=== PATIENT | female | born 1965 | race Two or more races ===

== ENCOUNTER 2018-02-24 22:43 | Emergency (ER) | payer OTHER ==
[~2018-02-24] VITALS: Ht 154.9 cm; Wt 61.2 kg
[~2018-02-24 22:43] MED LIST: AZITHROMYCIN250 MG ORAL; CYCLOBENZAPRINE10 MG ORAL; IBUPROFEN600 MG ORAL; NKM; PROMETHAZINE-C118 M1 ORAL; TAMIFLU75 MG ORAL
[2018-02-24 22:57] VITALS: BP 118/87
[2018-02-24] MEDS ORDERED: IBUPROFEN600 MG ORAL (23:09)
[2018-02-24] MEDS ORDERED: PSEUDOEPHEDRINE60 MG PO (23:09)
--- NOTE | 2018-02-24 23:09 | Emergency Room Report ---
History of Present Illness General Chief Complaint: Sore Throat Source: Patient Present Illness [facility] This is a 52-year-old female with no past medical history. She presents with chief complaint of sore throat, chills, body pain. Onset yesterday. No nausea no vomiting. Pain is achy nature. Coughing is nonproductive in nature. Throat is sore with coughing. Worse with swallowing. Better with rest. Has not take any medication for this. Her niece is here with similar symptoms. Allergies: Coded Allergies: PENICILLINS (Verified Allergy, Unknown, 02/24/18) Patient History Past Medical History: none, see triage record, old chart reviewed Past Surgical History: other Pertinent Family History: none Social History: Denies: smoking Last Menstrual Period: 2013 Now: No Immunizations: other Reviewed Nursing Documentation: PMH: Agreed; PSxH: Agreed Nursing Documentation-PMH Past Medical History: No Stated History Review of Systems Eye: Denies: eye pain, blurred vision ENT: Reports: nose congestion, throat pain; Denies: ear pain, throat swelling Respiratory: Reports: cough; Denies: shortness of breath Cardiovascular: Denies: chest pain, palpitations Gastrointestinal: Denies: abdominal pain, diarrhea, nausea, vomiting Musculoskeletal: Denies: back pain, joint pain Skin: Denies: rash Neurological: Denies: headache, numbness Endocrine: Denies: increased thirst, increased urine Hematologic/Lymphatic: Denies: easy bruising All Other Systems: negative except mentioned in HPI Physical Exam Vital Signs Date Time Temp Pulse Resp B/P (MAP) Pulse Ox O2 Delivery O2 Flow Rate FiO2 02/24/18 22:51 97.7 63 16 118/87 97 Room Air vitals normal Sp02 EP Interpretation: reviewed, normal General Appearance: well appearing, no apparent distress, alert Head: normocephalic, atraumatic Eyes: bilateral eye PERRL, bilateral eye EOMI ENT: hearing grossly normal, normal pharynx, other - Bilateral TM with fluid Neck: full range of motion, supple, no meningismus Respiratory: chest non-tender, lungs clear, normal breath sounds Cardiovascular #1: regular rate, rhythm, no murmur Gastrointestinal: normal bowel sounds, non tender, no mass, no organomegaly, no bruit, non-distended Musculoskeletal: back normal, gait/station normal, normal range of motion Psychiatric: mood/affect normal Skin: warm/dry Medical Decision Making Diagnostic Impression: Primary Impression: Upper respiratory infection Qualified Codes: J06.9 - Acute upper respiratory infection, unspecified ER Course Patient with a viral infection. No evidence of meningitis, strep throat, pneumonia or other serious serious infection. We'll treat symptomatically. Last Vital Signs Date Time Temp Pulse Resp B/P (MAP) Pulse Ox O2 Delivery O2 Flow Rate FiO2 02/24/18 22:57 97.7 61 16 118/87 97 Room Air Status: improved Disposition: HOME, SELF-CARE Condition: Stable Scripts Pseudoephedrine Hcl* (SUDAFED*) 60 Mg Tablet 60 MG PO Q6H, #20 TAB Prov: Mando Ramon MD 02/24/18 Ibuprofen* (MOTRIN*) 600 Mg Tablet 600 MG ORAL THREE TIMES A DAY, #30 TAB 0 Refills Prov: Mando Ramon MD 02/24/18 Additional Instructions: Increase fluids. Salt water gargle. Follow-up with your doctor in 7 days. Return if worse. Mando Ramon MD Feb 24, 2018 23:09
[2018-02-24 23:18] VITALS: BP 116/81
[2018-02-24 23:19] VITALS: BP 116/81
== END 2018-02-24 23:19 | disposition home or self-care (01) ==
LOC: EMR 23:15
DX: J06.9 Acute upper respiratory infection, unspecified (principal); B34.9 Viral infection, unspecified; Z88.0 Allergy status to penicillin
CPT/HCPCS: 99283

== ENCOUNTER 2018-03-11 08:30 | Emergency (ER) | payer OTHER ==
[~2018-03-11] VITALS: Ht 154.9 cm; Wt 63.5 kg
[~2018-03-11 08:30] MED LIST changes: +PSEUDOEPHEDRINE60 MG PO
[2018-03-11] MEDS ORDERED: NKM (08:37)
--- NOTE | 2018-03-11 08:40 | NUR ---
ED Nurse Note: PT WALKED IN TO ER TODAY FROM HOME. AOX4. PT C/O PRODUCTIVE, PAINFUL COUGH X 2 DAYS. PT ALSO C/O BODY ACHE X 2 DAYS. LUNG SOUNDS CLEAR IN ALL LOBES. NO SIGNS OF RESPIRATORY. RR16 WITH O2SAT @ 99%. PT DENIES FEVER, NAUSEA, VOMITING, OR DIARRHEA.
[2018-03-11 08:42] VITALS: BP 112/74
[2018-03-11] MEDS ORDERED: TAMIFLU75 MG ORAL (10:32)
[2018-03-11 10:59] VITALS: BP 116/76
--- NOTE | 2018-03-11 11:00 | NUR ---
ED Nurse Note: PT LAYING PEACEFULLY IN BED IN NAD. AOX4. PRESCRIPTION AND DISCHARGE PAPERWORK EXPLAINED TO PT. PT VERBALIZES UNDERSTANDING AND DENIES ANY QUESTIONS AT THIS TIME. PRESCRIPTION AND DISCHARGE PAPERWORK GIVEN TO PT AND ID WRISTBAND REMOVED. PT WALKED OUT OF ER WITH STEADY GAIT AND ALL BELONGINGS.
--- NOTE | 2018-03-11 15:25 | Diagnostic Imaging Report ---
Indication: Chest pain Technique: One view of the chest Comparison: none Findings: Lungs and pleural spaces are clear. Heart size is normal Impression: No acute process
--- NOTE | 2018-03-11 16:11 | Emergency Room Report ---
History of Present Illness General Chief Complaint: Upper Respiratory Illness Source: Patient Present Illness HPI Patient presents with complaints of cough and chest discomfort Patient reports over the past several days she has had increased cough Patient was here recently with similar URI symptoms Denies any pleurisy denies any recent travel denies any fevers Denies any vomiting or diarrhea she does have increased phlegm production however Allergies: Coded Allergies: PENICILLINS (Verified Allergy, Unknown, 03/11/18) Patient History Past Medical History: see triage record Pertinent Family History: none Last Menstrual Period: 2012 Reviewed Nursing Documentation: PMH: Agreed; PSxH: Agreed Nursing Documentation-PMH Past Medical History: No Stated History Review of Systems All Other Systems: negative except mentioned in HPI Physical Exam Vital Signs Date Time Temp Pulse Resp B/P (MAP) Pulse Ox O2 Delivery O2 Flow Rate FiO2 03/11/18 08:33 98.1 68 16 113/77 97 Room Air Sp02 EP Interpretation: reviewed, normal General Appearance: well appearing, no apparent distress Head: normocephalic, atraumatic Eyes: bilateral eye PERRL, bilateral eye EOMI ENT: hearing grossly normal, normal pharynx, TMs + canals normal, uvula midline , other - Nasal congestion with clear Rhinorrhea Neck: full range of motion, supple, no meningismus, no bony tend Respiratory: normal breath sounds, no rhonchi, no respiratory distress, no retraction, no accessory muscle use, crackles - Bilaterally Cardiovascular #1: normal peripheral pulses, regular rate, rhythm, no edema, no gallop, no JVD, no murmur Gastrointestinal: normal bowel sounds, non tender, soft, no mass, no organomegaly, non-distended, no guarding, no hernia, no pulsatile mass, no rebound Genitourinary: no CVA tenderness Musculoskeletal: normal inspection Neurologic: oriented x3, responsive, commodities broker III-XII nml as tested, motor strength/ tone normal, sensory intact Psychiatric: mood/affect normal Skin: normal color, no rash, warm/dry, palpation normal Lymphatic: normal inspection, no adenopathy Medical Decision Making Diagnostic Impression: Primary Impression: Upper respiratory infection Additional Impression: Influenza ER Course Multiple differentials considered Including but not limited to cardiac, cardiopulmonary, vascular pathology Given the patient's repeat presentation x-ray imaging was obtained which was negative Findings remain consistent with flulike symptoms given the duration of 2 days patient is placed on Tamiflu and requires close follow-up Chest X-Ray Diagnostic Results Chest X-Ray Diagnostic Results : Chest X-Ray Ordered: Yes # of Views/Limited/Complete: 1 View Indication: Chest Pain EP Interpretation: Yes Interpretation: no consolidation, no effusion, no pneumothorax Impression: No acute disease Electronically Signed by: Sterling Aggarwal DO Last Vital Signs Date Time Temp Pulse Resp B/P (MAP) Pulse Ox O2 Delivery O2 Flow Rate FiO2 03/11/18 10:59 98.5 64 17 116/76 97 Room Air Status: improved Disposition: HOME, SELF-CARE Condition: Stable Scripts Oseltamivir Phosphate (Tamiflu) 75 Mg Capsule 75 MG ORAL TWICE A DAY for 5 Days, CAP Prov: Sterling Aggarwal DO 03/11/18 Referrals: NON PHYSICIAN (PCP) Patient Instructions: Upper Respiratory Infection, Adult Additional Instructions: Patient is provided with the discharge instructions notified to follow up with primary doctor in the next 2-3 days otherwise return to the er with any worsening symptoms. Please note that this report is being documented using [employer] technology. This can lead to erroneous entry secondary to incorrect interpretation by the dictating instrument. Sterling Aggarwal DO Mar 11, 2018 16:11
== END 2018-03-11 11:00 | disposition home or self-care (01) ==
LOC: EMR 08:45
DX: J06.9 Acute upper respiratory infection, unspecified (principal); J11.1 Influenza due to unidentified influenza virus with other respiratory manifestations; Z88.0 Allergy status to penicillin
CPT/HCPCS: 71045; 93005; 99283

== ENCOUNTER 2019-01-16 13:36 | Emergency (ER) | payer OTHER ==
[~2019-01-16] VITALS: Ht 154.9 cm; Wt 59.0 kg
[2019-01-16] MEDS ORDERED: PATADAY2.5 ML OP (13:49)
[2019-01-16] MEDS ORDERED: Fluorescein Strips LEFT EYE ONE (15:00)
[2019-01-16] MEDS ORDERED: Tetracaine 0.5% Opth 4ml Soln LEFT EYE ONE (15:00)
[2019-01-16 15:33] VITALS: BP 110/65
--- NOTE | 2019-01-16 15:42 | Emergency Room Report ---
History of Present Illness General Chief Complaint: Eye Problems Source: Patient Present Illness HPI 33-year-old female presents to the emergency department complaining of 2 complaints first complaint being erythema in the left eye x4 hours. Pt. Patient states she looked in the mirror randomly earlier and noticed the discoloration. Patient denies trauma she denies sneezing, coughing, history of high blood pressure or constipation. She denies eye pain, discharge, visual changes or loss of vision. Patient denies increase in lacrimation. Patient denies photophobia. Patient does report she also has an 8 out of 10 severity pain to the left ankle times almost 2 weeks. Patient reports that she fell and twisted her ankle and her symptoms have not improved. Patient reports her pain is exacerbated upon walking she states she is able to weight-bear. Patient denies previous injury to the extremity. Patient states that she has not taken any medications for any of her symptoms. Denies numbness tingling or loss of sensation or gross motor movements of the extremities, incontinence of bowel or bladder. Denies CP, Palpitations, LOC, AMS, dizziness, Changes in Vision, weakness or a sudden severe headache. Allergies: Coded Allergies: PENICILLINS (Verified Allergy, Unknown, 03/11/18) Patient History Past Medical History: see triage record Past Surgical History: none Pertinent Family History: none Last Menstrual Period: menopause Now: No Reviewed Nursing Documentation: PMH: Agreed; PSxH: Agreed Nursing Documentation-PMH Past Medical History: No Stated History Review of Systems All Other Systems: negative except mentioned in HPI Physical Exam Vital Signs Date Time Temp Pulse Resp B/P (MAP) Pulse Ox O2 Delivery O2 Flow Rate FiO2 01/16/19 13:46 97.9 82 18 107/67 (80) 94 Room Air Sp02 EP Interpretation: reviewed, normal General Appearance: no apparent distress, alert, GCS 15, non-toxic Head: normocephalic, atraumatic Eyes: left eye visual acuity - 20/30; bilateral eye normal inspection, bilateral eye PERRL, bilateral eye EOMI, bilateral eye other - Visible subconjunctival full hemorrhage to the medial aspect of the left eye, no increased fluorescein uptake, normal Eder-Pen pressures of 13, 17 and 16. No evidence of foreign body on lid flip examination, normal visual acuity, negative Jayde sign ENT: hearing grossly normal, normal voice Neck: full range of motion Respiratory: lungs clear, normal breath sounds, speaking full sentences Cardiovascular #1: regular rate, rhythm, normal capillary refill Cardiovascular #2: 2+ dorsalis pedis (L) Musculoskeletal: back normal, gait/station normal, normal range of motion, swelling - Lateral left ankle, tender - Lateral left ankle Neurologic: alert, oriented x3, responsive, motor strength/tone normal, sensory intact, speech normal, grossly normal Psychiatric: judgement/insight normal Skin: no rash, normal color Medical Decision Making PA Attestation Dr. Higginbotham is my supervising Physician whom patient management has been discussed with. Diagnostic Impression: Primary Impression: Subconjunctival hemorrhage of left eye Additional Impression: Left ankle sprain Qualified Codes: S93.402A - Sprain of unspecified ligament of left ankle, initial encounter ER Course 33-year-old female presents to the emergency department complaining of 2 complaints first complaint being erythema in the left eye x4 hours. Pt. Patient states she looked in the mirror randomly earlier and noticed the discoloration. Patient denies trauma she denies sneezing, coughing, history of high blood pressure or constipation. She denies eye pain, discharge, visual changes or loss of vision. Patient denies increase in lacrimation. Patient denies photophobia. Patient does report she also has an 8 out of 10 severity pain to the left ankle times almost 2 weeks. Patient reports that she fell and twisted her ankle and her symptoms have not improved. Patient reports her pain is exacerbated upon walking she states she is able to weight-bear. Patient denies previous injury to the extremity. Patient states that she has not taken any medications for any of her symptoms. Denies numbness tingling or loss of sensation or gross motor movements of the extremities, incontinence of bowel or bladder. Denies CP, Palpitations, LOC, AMS, dizziness, Changes in Vision, weakness or a sudden severe headache. Ddx considered but are not limited to Fracture, dislocation, contusion, Sprain/ Strain/Spasm, sub-conjunctival hemorrhage, acute angle-glaucoma, corneal abrasion, iritis just to name a few. Vital signs: are WNL, pt. is afebrile H&PE are most consistent with subconjunctival hemorrhage with a normal eye exam no increased floor seen uptake and normal Eder-Pen pressures of 13, 17 and 16. Musculoskeletal injury will perform imaging to r/o fractures/dislocations. ORDERS: - X-ray left Ankle 3 views - negative for fx, Dislocation, or significant soft tissue injury, per preliminary read in ED, and signed by CHOLO Young , my supervising physician has reviewed, and agrees with my interpretation. ED INTERVENTIONS: -Tylenol p.o. -Luis wrap applied to the left ankle by diamond powder technician. Pt. remains neurovascularly intact. DISCHARGE: At this time pt. is stable for d/c to home. Will provide printed patient care instructions, and any necessary prescriptions. Care plan and follow up instructions have been discussed with the patient prior to discharge. Other X-Ray Diagnostic Results Other X-Ray Diagnostic Results : X-Ray ordered: Left Ankle # of Views/Limited Vs Complete: 3 View Indication: Pain EP Interpretation: Yes CHOLO Xray: Interpretation reviewed, by supervising MD, and agrees with findings. Interpretation: no dislocation, no soft tissue swelling, no fractures Impression: No acute disease Electronically Signed by: Mary Grace Young PA-C Last Vital Signs Date Time Temp Pulse Resp B/P (MAP) Pulse Ox O2 Delivery O2 Flow Rate FiO2 01/16/19 15:33 98.0 70 17 110/65 95 Room Air Disposition: HOME, SELF-CARE Condition: Stable Scripts Acetaminophen* (TYLENOL EXTRA STRENGTH*) 500 Mg Tablet 500 MG ORAL Q8H, #30 TAB 0 Refills Prov: Mary Grace Young 01/16/19 Referrals: [facility],REFERRING (PCP) Patient Instructions: Ankle Sprain, [id number], Subconjunctival Hemorrhage Additional Instructions: Take medications as directed. Follow up with a Primary Care Provider and an [facility] Helper within 3-5 days, even if your symptoms have resolved. --Please review list of primary care clinics, if you do not already have a primary care provider Return sooner to ED if new symptoms occur, or current symptoms become worse. - Please note that this Emergency Department Report was dictated using [employer] technology software, occasionally this can lead to erroneous entry secondary to interpretation by the dictation equipment. Mary Grace Young Jan 16, 2019 15:42
[2019-01-16] MEDS ORDERED: TYLENOL EXTRA500 MG ORAL (16:08)
--- NOTE | 2019-01-16 16:37 | NUR ---
ED Nurse Note: pt walked in from home c/o left eye pain headache and left ankle pain. ELIZABETHD stan done Imaging done pt medicated awaiting further instructions.
--- NOTE | 2019-01-16 17:00 | Diagnostic Imaging Report ---
Indication: Left ankle pain, trauma Technique: 3 views of the left ankle Comparison: none Findings: No acute fractures. No dislocations. The joint spaces are preserved. Impression: Negative
[2019-01-16 17:23] VITALS: BP 110/65
--- NOTE | 2019-01-16 17:24 | NUR ---
ED Nurse Note: Pt cleared by health care Provider for discharge. DC instructions/prescription was given and explained to pt and verbalized understanding of teachings. All medical deviecs such as ID band removed. Pt is AAO x4, ambulatory and left with all personal belongings.
== END 2019-01-16 17:00 | disposition home or self-care (01) ==
LOC: EMR 15:07
DX: H11.32 Conjunctival hemorrhage, left eye (principal); S93.402A Sprain of unspecified ligament of left ankle, initial encounter; W19.XXXA Unspecified fall, initial encounter; Y93.9 Activity, unspecified; Y92.9 Unspecified place or not applicable; Z88.0 Allergy status to penicillin
CPT/HCPCS: 73610; Z7502; 99283